=== PATIENT | female | born 1965 | race Caucasian/White ===

== ENCOUNTER 2019-07-07 14:30 | Outpatient (RCR) | payer OTHER, SELFPAY ==
--- NOTE | 2019-06-09 12:16 | HP.PTEVAL ---
Patient's Visit Information МАРИЯ ELDER is a 53 year old F referred to Physical Therapy by NELSNO OLIVARES with a diagnosis of Knee OA. Date of Evaluation: 06/09/19 Physical Therapist: Rosalba Hunter DPT - Visit Plan Frequency: 1x/Week Duration: 4 Weeks Plan: Focus on LE and core s/s- Give HEP each week due to work schedule- has no gym availability. HEP Given IE: SLR with quad set, Clams no band, Hamstring stretch seated, HR/TR, SLS with focus on keeping pelvis level - Subjective Findings: Pain in the left knee- started in January- insidious onset- was hiking in [place] and it bothered her. Got worse in March- had in injection which gave her superficial blood clots- had x-ray which showed bone on bone on the medial compartment. They are ordering Gel shots and a medial dope worker brace. Pain is located on the medial knee and radiates about 5 inches down the shaft of the tibia medially. No radiating pain. Describes the pain as first thing in the am she is better as the day goes on it gets worse- throbbing and achy- if she turns quickly then sharp/shooting. No N/T in the LE- no problems with the right leg. Sleep: not disturbed. Worst: 5-6/10. Agg: turning quickly. Best:0/10 Eases: getting off of it. Does feel like the knee will buckle under her. 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 PMHx: superficial blood clots, aortic aneurism. Meds: paxil, clopidorgil, atenolol, baby asprin. Does not have a normal exercise routine. She walks a lot- dog on the weekend she walks outside and does a couple of miles. - Objective Posture: FH, RS. Gait: antalgic- decreased heel/toe pattern on the left. Observation: significant rotation of the left LE. Stairs: asc/desc- significant rotation of the left LE- poor control with descent. HR/TR: able. SLS: hip drop 15 sec then LOB. ROM: 0-130 degrees. Palpatoin: pain along medial joint line. Flex: HS: moderate, Gastroc: moderate. Strength: Core:fair, Hip: 4/5, Knee: 4/5 with pain, Ankle: 5/5 - Goals Goal 1:: Patient will be I with HEP and progression Goal Time Frame: 4-6 Weeks Goal 2:: Patient will ambulate >300 feet with a normalized gait pattern Goal Time Frame: 4-6 Weeks Goal 3:: Patient will asc/desc 8 recip with 1 HR and good technique Goal Time Frame: 4-6 Weeks Goal 4:: Patient will demo 5/5 strength in LE Goal Time Frame: 4-6 Weeks - Rehabilitation Potential Physical Therapy Diagnosis: Patient presents with hypomobility- she has OA in the medial compartment of the knee. Demonstrating decreased strength, flex and muscular endurance leading to increased pain with ADL's. - Anticipated Interventions Patient/Client Instruction: Educate patient on: Benefits of Fitness Program Therapeutic Exercise to Include: Strength training, Endurance training, Balance training, Coordination, Agility training, Body mechanics, Postural training, Flexibilty training, Gait and locomotor training, Neuromotor development, Dynamic Lumbar Stabilization For the Purpose of:: To improve muscle performance and motor function TENS: Yes Cryotherapy (ice pack, ice massage): Yes Thermo therapy (hot pack): Yes Ultrasound (thermal/non thermal): Yes For the Purpose of:: To decrease pain Thank you for the opportunity to evaluate your patient. For Medicare and Medicare HMO plans, please review the plan of care and approve it. It will need to be FAXED BACK to us at [phone] for Medicare purposes. For Medicare only, by signing this I certify the plan of care. Please let me know if there are questions or concerns regarding this plan of care. Physician Signature: Date:
--- NOTE | 2019-07-07 14:54 | HP.PTDCSUM ---
It has been my pleasure to treat МАРИЯ ELDER referred by NELSON OLIVARES, with the diagnosis of Knee OA for a total of 5 visit(s). Discharge Date: Please see the following information for a summary of their discharge status. Subjective: Patient reports thats she had a cortisone and gel shot on Sunday- no significant changes since the injection. She reports that she feels stronger and has gotten the brace. She feels she is better. Feels confident with the exercises. Left Knee Pain Intensity (Out of 10): 0 % Improvement: 60 Objective/Function: Posture: FH, RS. Gait: antalgic- decreased heel/toe pattern on the left but improved from IE. Observation: significant rotation of the left LE. Stairs: asc/desc- significant rotation of the left LE. HR/TR: able. SLS: 30 sec no LOB ROM: 0-130 degrees. Palpatoin: pain along medial joint line. Flex: HS: moderate, Gastroc: moderate. Strength: Core:fair, Hip: 5/5, Knee: 5/5, Ankle: 5/5 Goal 1:: Patient will be I with HEP and progression Goal Progress: Goal Met Goal 2:: Patient will ambulate >300 feet with a normalized gait pattern Goal Progress: Progressing Goal 3:: Patient will asc/desc 8 recip with 1 HR and good technique Goal Progress: Progressing Goal 4:: Patient will demo 5/5 strength in LE Goal Progress: Goal Met Plan: Discharge to [facility] If there are questions or concerns regarding this patient's physical therapy, please feel free to call me at [phone]. Thank you for the referral of this patient. Sincerely, Rosalba Hunter DPT
== END 2019-07-07 19:00 | disposition home or self-care (01) ==
LOC: PT 14:30
PROVIDERS: PCP Internal Medicine
DX: M17.0 Bilateral primary osteoarthritis of knee (principal)
CPT/HCPCS: 97110; 97162; 97164

== ENCOUNTER 2019-12-15 11:30 | Outpatient (RCR) | payer OTHER, SELFPAY ==
--- NOTE | 2019-10-20 10:59 | HP.PTEVAL ---
Patient's Visit Information МАРИЯ ELDER is a 54 year old F referred to Physical Therapy by Dr. Red Howell DO with a diagnosis of L TKA. Date of Evaluation: 10/20/19 Physical Therapist: Toi Jarquin PT, ATC - Visit Plan Frequency: 2-3x /Week Duration: 4-6 Weeks Plan: L knee stretching and strengthening, balance and proprio, core strengthening, nustep, and HEP - Subjective DOS: 10/16/2019. Pt reports she had L knee pain chronically prior to having L TKA. Pt reports she attempted PT and injections in the past, but never benefitted much with them. Pt reports she is glad to have had the surgery at this time. Pt reports her pain is about the same as prior to surgery, but it continues to improve. No tingling or numbness at this time in the L LE. Pt reports sleep difficulty secondary to pain without the use of pain meds. No PMHx of knee surgeries. 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 Pt has stairs at home to her basement which she has not attempted yet. 3/10 pain at rest, 6/10 pain when meds are due. - Pain L Knee TKA Pain Intensity (Out of 10): 3 Pain Intensity Range: 6 - Objective Neuro: B LE sensation is WNL to light touch. B Achilles reflex= 2+/3. Girth at joint line: R knee 38 cm, L knee 44 cm. ROM: L knee 0-10-72. R knee 0-140 degrees. MMT: R knee 5/5 throughout. L knee 3+/5 in available ROM. Gait: Pt ambulated greater than 300 feet today with WW without difficulty. - Goals Goal 1:: Decrease L knee pain x 50% to aid with sleep Goal Time Frame: 4-6 Weeks Goal 2:: Increase L knee ROM x 40 degrees to aid with normalizing gait pattern Goal Time Frame: 4-6 Weeks Goal 3:: Increase L knee strength x 1 grade to aid with stair negotiation Goal Time Frame: 4-6 Weeks Goal 4:: I with HEP Goal Time Frame: 4-6 Weeks - Rehabilitation Potential Physical Therapy Diagnosis: L knee pain, weakness, and limited ROM secondary to L TKA Rehabilitation Potential: Good - Anticipated Interventions Patient/Client Instruction: Educate patient on: Condition, Plan of Care For the Purpose of:: To improve self management Therapeutic Exercise to Include: Strength training, Endurance training, Balance training, Flexibilty training, Gait and locomotor training, Passive ROM, Active ROM, Dynamic Lumbar Stabilization For the Purpose of:: To decrease pain, To increase ROM, To improve muscle performance and motor function Cryotherapy (ice pack, ice massage): Yes For the Purpose of:: To decrease pain Thank you for the opportunity to evaluate your patient. For Medicare and Medicare HMO plans, please review the plan of care and approve it. It will need to be FAXED BACK to us at [phone] for Medicare purposes. For Medicare only, by signing this I certify the plan of care. Please let me know if there are questions or concerns regarding this plan of care. Physician Signature: Date:
--- NOTE | 2019-12-25 16:48 | HP.PT.NRP ---
МАРИЯ ELDER was seen in my office for initial evaluation on 10/20/19. The following Plan of Care was established for this patient: Initial Frequency: 2-3x /Week Initial Duration: 4-6 Weeks Patient/Client Instruction: Educate patient on: Condition, Plan of Care For the Purpose of:: To improve self management Therapeutic Exercise to Include: Strength training, Endurance training, Balance training, Flexibilty training, Gait and locomotor training, Passive ROM, Active ROM, Dynamic Lumbar Stabilization For the Purpose of:: To decrease pain, To increase ROM, To improve muscle performance and motor function Cryotherapy (ice pack, ice massage): Yes For the Purpose of:: To decrease pain This patient was last seen in our office . Pertinent comments regarding their Physical therapy will appear below: Pt returned today with no pain after beginning work this week. Pt is discharged at this time with Rx goals being achieved. At this point I will be discontinuing this patient from physical therapy. I would be happy to see this patient again in the future if found appropriate by the physician. Thank you! Toi Jarquin, PT, ATC
== END 2019-12-15 19:00 | disposition home or self-care (01) ==
LOC: PT 11:30
PROVIDERS: PCP Internal Medicine; Referring Provider Internal Medicine; Visit Provider Internal Medicine
DX: M17.0 Bilateral primary osteoarthritis of knee (principal)
CPT/HCPCS: 97016; 97110; 97140; 97161; 97164

== ENCOUNTER → 2019-12-17 06:33 | Outpatient (CLI) | payer OTHER, SELFPAY ==
[2019-12-17 08:13] LABS: Cholesterol 173 mg/dL (200); High Density Lipoprotein 51 mg/dL; Triglycerides 91 mg/dL; Very Low Density Lipoprotein 18 mg/dL (5-40)
== END ==
PROVIDERS: PCP Internal Medicine
DX: Z13.220 Encounter for screening for lipoid disorders (principal)
CPT/HCPCS: 36415; 80061

== ENCOUNTER → 2021-12-29 | Outpatient (CLI) | payer BC, SELFPAY ==
--- NOTE | 2021-12-29 15:01 | BI_ITS ---
MAMMOGRAPHY - BILATERAL SCREENING REASON FOR EXAM: Female, 56 years old. Routine annual screening examination. PERTINENT HISTORY: Non-contributory. TECHNIQUE: Digital bilateral breast amrik (3D mammographic acquisition) in the CC and MLO projections. 2-D mediolateral oblique (MLO) and craniocaudad (CC) views of both breasts were obtained. CAD: Full Field Digital Mammography with Computer Added Detection was performed. COMPARISON: Comparison is made with prior abdomen examination dated 11/26/2018. FINDINGS: Breast Composition: The breasts are heterogeneously dense, which may obscure small masses. There are no dominant masses or suspicious calcifications. Stable benign-appearing left axillary lymph nodes. No other significant abnormalities are identified. There has been no significant change since the prior study. BI/SCRN MAMM (CAD)W/AMRIK BILAT IMPRESSION: Stable bilateral screening mammogram. Yearly follow-up mammogram recommended. (A) ASSESSMENT CATEGORY: BIRADS Category 2: Benign. A letter regarding these results will be sent to the patient by the facility within 30 days. Approximately 10% of breast cancers are not detected by mammography. A normal mammogram should not delay biopsy of a clinically suspicious abnormality. [id number] Electronically Signed: Rajesh Staples MD at 8:19 EDT ,
== END | disposition home or self-care (01) ==
PROVIDERS: PCP Internal Medicine
DX: Z12.31 Encounter for screening mammogram for malignant neoplasm of breast (principal)
CPT/HCPCS: 77063; 77067

== ENCOUNTER 2022-06-16 08:00 | Outpatient (RCR) | payer BC, SELFPAY ==
--- NOTE | 2022-04-28 13:58 | HP.PTEVAL_ITS ---
Patient's Visit Information МАРИЯ ELDER is a 56 year old F referred to Physical Therapy by Dr. Luis Felipe Henderson MD with a diagnosis of spondylolisthesis. Date of Evaluation: 04/28/22 Physical Therapist: Greg Jaime, DERIAN, OCS, CSCS - Visit Plan Frequency: 1x/Week Duration: 4-6 Weeks Plan: weekly x 4 to teach and progress LB ROM , and core to full body strength. Next session supermans and seted pulldown, row, pot stirs and check current exercises. Ensure NS. - Subjective LBP and B hip pain for months especially getting up in am. Putting feet on ground in morning was very painful. Lasted a couple hours. Better as day went along. That started in December and lasted until a month ago. 01/30 in am. Has x rays of hips which was fine. Gave a round of steroids and helped but came back within a week. Sent to ortho spine doctor [facility] 04/11 adn pain was gone by then. 100% better now and not sure why. X ray of spine and has spondylolisthesis. May need a fusion eventually. Not sure when pain will come back. Sent for core exercises. Will start taking calcium. Life is normal right now, sleeps well. Flipped mattress and felt better as it is more firm now. 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 Hobbies: sew, [employer].No problem. basic ADLs are OK. - Objective Walks normal today with good balance. Trasnfers normal without pain. LB AROM full and painfree except extension minlimited and tight centrally. quad and psoas mod tight B, other muscle good and patent. strength LE 4/5 except hip extension with 3/5 B. core strength 3+ abdominals and extensors. PA pressur epainful lower lumbar. - slump, -SLR. reflexes 2/3 patella and achilles. sensation LE WNL to gross light touch. - Balance/Special Test Scores Oswestry Low Back Score: 2 - Goals Goal 1:: I management of condition of strength and ROM and stretching ex without retun of pain Goal Time Frame: 2-4 Weeks - Rehabilitation Potential Physical Therapy Diagnosis: h/o LBP spondylolisthesis Rehabilitation Potential: Good - Anticipated Interventions Patient/Client Instruction: Educate patient on: Condition, Plan of Care For the Purpose of:: To decrease pain, To improve nutrient delivery to tissue, To increase tolerance to activity/condition/position, To improve ability of physical actions for home/community/work/leisure Therapeutic Exercise to Include: Strength training, Flexibilty training, Passive ROM, Active ROM, Dynamic Lumbar Stabilization For the Purpose of:: To decrease pain, To improve muscle performance and motor function, To improve ability of physical actions for home/community/work/leisure Thank you for the opportunity to evaluate your patient. For Medicare and Medicare HMO plans, please review the plan of care and approve it. It will need to be FAXED BACK to us at [phone] for Medicare purposes. For Medicare only, by signing this I certify the plan of care. Please let me know if there are questions or concerns regarding this plan of care. Physician Signature: Date:
--- NOTE | 2022-06-16 08:26 | HP.PTDCSUM_ITS ---
It has been my pleasure to treat МАРИЯ ELDER referred by Dr. Luis Felipe Henderson MD, with the diagnosis of spondylolisthesis for a total of 4 visit(s). Discharge Date: 06/16/22 Please see the following information for a summary of their discharge status. Subjective: Take a daily alleve for R knee. Feeling good for the last month. Occasional pain now and then in LB. May have to do with putting bed heads up/down. Exercises are getting easier. Even knee is getting better. Pain only gets to 2/10 and activities are normal. Sleeping well. No f/u with doctor [facility] returns. Fusion was mentioned. Objective/Function: Full aROM L/S with just slight end range ext pain. Moving adn walking well. Goal 1:: I management of condition of strength and ROM and stretching ex without retun of pain Goal Progress: Goal Met Plan: d/c If there are questions or concerns regarding this patient's physical therapy, please feel free to call me at [phone]. Thank you for the referral of this patient. Sincerely, Greg Jaime, DPT, OCS, CSCS Balance/Gait/Functional tests - Balance/Special Test Scores Oswestry Low Back Score: 2
== END 2022-06-16 08:33 | disposition home or self-care (01) ==
LOC: PT 08:00
PROVIDERS: PCP Internal Medicine; Referring Provider Orthopaedic Surgery Orthopaedic Surgery of the Spine; Visit Provider Orthopaedic Surgery Orthopaedic Surgery of the Spine
DX: M43.16 Spondylolisthesis, lumbar region (principal)
CPT/HCPCS: 97110; 97161; 97164

== ENCOUNTER → 2022-09-23 | Outpatient (CLI) | payer BC, SELFPAY ==
[2022-09-23 09:15] LABS: ALB/GLOB Ratio 1.2 RATIO (0.9-2.4); AST(SGOT) 22 U/L (15-37); Alanine Aminotransfer ALT/SGPT 18 U/L (13-56); Albumin, Serum 3.3 g/dL (3.2-5.0); Alkaline Phosphatase 54 U/L (45-117); Anion Gap 6 (5-15); BUN 29 mg/dL (7-18); BUN/Creat Ratio 35.5 RATIO (10-20); Calcium,Total 8.1 mg/dL (8.5-10.1); Chloride 111 mmol/L (98-107); Cholesterol 145 mg/dL (200); Creatinine, Serum 0.82 mg/dL (0.55-1.02); EST Glomerular Filtration Rate 76 mL/min (>60); Est Glom Filt Rate - Afr Amer 92 mL/min (>60); Globulin 2.7 g/dL (2.2-4.2); Glucose 80 mg/dL (74-106); High Density Lipoprotein 52 mg/dL; Potassium 4.5 mmol/L (3.5-5.1); Sodium Level 144 mmol/L (136-145); Triglycerides 60 mg/dL; Very Low Density Lipoprotein 12 mg/dL (5-40)
== END | disposition home or self-care (01) ==
LOC: LAB 06:59
PROVIDERS: PCP Internal Medicine; Referring Provider Internal Medicine; Visit Provider Internal Medicine
DX: E78.5 Hyperlipidemia, unspecified (principal); Z79.899 Other long term (current) drug therapy
CPT/HCPCS: 36415; 80053; 80061

== ENCOUNTER → 2023-03-07 | Outpatient (CLI) | payer BC, SELFPAY ==
--- NOTE | 2023-03-07 15:04 | BI_ITS ---
MAMMOGRAPHY - BILATERAL SCREENING REASON FOR EXAM: Female, 57 years old. Routine annual screening examination. PERTINENT HISTORY: Non-contributory. TECHNIQUE: Digital bilateral breast amrik (3D mammographic acquisition) in the CC and MLO projections. 2-D mediolateral oblique (MLO) and craniocaudad (CC) views of both breasts were obtained. CAD: Full Field Digital Mammography with Computer Added Detection was performed. COMPARISON: Comparison is made with prior study dated December 29, 2021. FINDINGS: Breast Composition: The breasts are heterogeneously dense, which may obscure small masses. There are no dominant masses or suspicious calcifications. No other significant abnormalities are identified. There has been no significant change since the prior study. BI/SCRN MAMM (CAD)W/AMRIK BILAT IMPRESSION: Stable bilateral screening mammogram. Yearly follow-up mammogram recommended. (A) ASSESSMENT CATEGORY: BIRADS Category 1: Negative. A letter regarding these results will be sent to the patient by the facility within 30 days. Approximately 10% of breast cancers are not detected by mammography. A normal mammogram should not delay biopsy of a clinically suspicious abnormality. [id number] Electronically Signed: Rajesh Staples MD at 8:41 EST ,
== END | disposition home or self-care (01) ==
PROVIDERS: PCP Internal Medicine
DX: Z12.31 Encounter for screening mammogram for malignant neoplasm of breast (principal)
CPT/HCPCS: 77063; 77067

== ENCOUNTER → 2023-09-14 | Outpatient (CLI) | payer OTHER, SELFPAY ==
[2023-09-14 08:44] LABS: Basophil# 0.04 X10^3/uL; Basophil% 0.8 % (0-1); Eosinophil# 0.14 X10^3/uL; Eosinophils% 2.8 % (0-5); Hematocrit 44.4 % (37-47); Hemoglobin 14.5 g/dL (12.0-15.0); Lymphocyte % 28.5 % (19-41); Mean Corp Hgb Conc 32.7 g/dL (32-36); Mean Corpuscular Hgb 30.1 pg (27.0-32.0); Mean Corpuscular Volume 92.3 fL (81-99); Mean Platelet Vol. 9.8 fl (6.2-12.0); Monocyte# 0.37 X10^3/uL; Monocyte% 7.5 % (0-10); NRBC Flagged by Analyzer 0 % (0-5); Neutrophil # 2.95 X10^3/uL (2.7-7.7); Platelet Count 198 K/mm3 (150-450); RBC Distribution Width SD 44.4 fl (35.1-43.9); Red Blood Count 4.81 M/mm3 (4.2-5.4); White Blood Count 4.9 K/mm3 (4.4-11.0)
[2023-09-14 09:27] LABS: ALB/GLOB Ratio 1.1 RATIO (0.9-2.4); AST(SGOT) 18 U/L (15-37); Alanine Aminotransfer ALT/SGPT 18 U/L (13-56); Albumin, Serum 3.5 g/dL (3.2-5.0); Alkaline Phosphatase 48 U/L (45-117); Anion Gap 6 (5-15); BUN 28 mg/dL (7-18); BUN/Creat Ratio 30.4 RATIO (10-20); Calcium,Total 8.8 mg/dL (8.5-10.1); Chloride 112 mmol/L (98-107); Cholesterol 178 mg/dL (200); Creatinine, Serum 0.92 mg/dL (0.55-1.02); EST Glomerular Filtration Rate 66 mL/min (>60); Est Glom Filt Rate - Afr Amer 80 mL/min (>60); Globulin 3.2 g/dL (2.2-4.2); Glucose 92 mg/dL (74-106); High Density Lipoprotein 54 mg/dL; Potassium 4.3 mmol/L (3.5-5.1); Protein, Total 6.7 g/dL (6.4-8.2); Sodium Level 142 mmol/L (136-145); Thyroid Stim Hormone (TSH) 2.64 uIU/mL (0.358-3.74); Triglycerides 81 mg/dL; Very Low Density Lipoprotein 16 mg/dL (5-40)
== END | disposition home or self-care (01) ==
LOC: LAB 08:14
PROVIDERS: PCP Internal Medicine; Visit Provider Internal Medicine
DX: Z00.00 Encounter for general adult medical examination without abnormal findings (principal); E78.5 Hyperlipidemia, unspecified
CPT/HCPCS: 36415; 80053; 80061; 84443; 85025

== ENCOUNTER → 2024-03-10 | Outpatient (CLI) | payer OTHER, SELFPAY ==
--- NOTE | 2024-03-10 15:55 | BI_ITS ---
MAMMOGRAPHY - BILATERAL SCREENING REASON FOR EXAM: Female, 58 years old. Routine annual screening examination. PERTINENT HISTORY: Non-contributory. TECHNIQUE: Digital bilateral breast amrik (3D mammographic acquisition) in the CC and MLO projections. 2-D mediolateral oblique (MLO) and craniocaudad (CC) views of both breasts were obtained. CAD: Full Field Digital Mammography with Computer Added Detection was performed. COMPARISON: Comparison is made with prior study dated March 07, 2023 and December 29, 2021. FINDINGS: Breast Composition: The breasts are heterogeneously dense, which may obscure small masses. There are no dominant masses or suspicious calcifications. No other significant abnormalities are identified. There has been no significant change since the prior study. BI/SCRN MAMM (CAD)W/AMRIK BILAT IMPRESSION: Stable bilateral screening mammogram. Yearly follow-up mammogram recommended. (A) ASSESSMENT CATEGORY: BIRADS Category 1: Negative. A letter regarding these results will be sent to the patient by the facility within 30 days. Approximately 10% of breast cancers are not detected by mammography. A normal mammogram should not delay biopsy of a clinically suspicious abnormality. [id number] Electronically Signed: Rajesh Staples MD at 9:24 EST ,
== END | disposition home or self-care (01) ==
LOC: OPBI 15:52
DX: Z12.31 Encounter for screening mammogram for malignant neoplasm of breast (principal)
CPT/HCPCS: 77063; 77067

== ENCOUNTER 2024-04-04 05:57 | Day surgery (SDC) | payer OTHER, SELFPAY ==
--- NOTE | 2024-04-03 07:28 | PAT.ANE_ITS ---
PAT status Pat Assessment PAT Assessment: PAT Anesthesia Results to Eval 04/02/24 16:33 Pre-Assessment Diagnosis/Proposed Procedure Planned Operative Procedure(s): COLONOSCOPY Anesthesia History Anesthesia History - heater helper: Anesthesia History - heater helper Hx Hospitalization No 04/01/24 14:44 Any Problems With Anesthesia No 04/01/24 14:44 Cholinesterase deficiency No 04/01/24 14:44 You/Your Family Experience No 04/01/24 14:44 fever (hyperthermia) with Relationship Recent Exposure to Contagious Disease Does patient have nerve No 04/01/24 14:44 stimulator Patient instructed to have device shut off --Does patient have Pacemaker or ICD? When Was Last Pacemaker Check QUESTION #4 FULL TEXT: You/Your Family Experience fever (hyperthermia) with Anesthesia Last Oral Intake Last Oral intake: Last Oral Intake NPO since Meds taken in AM with sips of water? Meds patient instructed to take am of surgery PONV PONV - heater helper: PONV - heater helper Female Yes 04/01/24 14:44 HX of Motion Sickness No 04/01/24 14:44 HX of N/V After Surgery No 04/01/24 14:44 Non-Smoker Yes 04/01/24 14:44 Duration of Surgery greater No 04/01/24 14:44 than 60 minutes Number of Risk Factors 2 04/01/24 14:44 PONV Score Moderate Risk 04/01/24 14:44 Respiratory Assessment Respiratory Assessment - heater helper: Respiratory Tract Infection Hx - heater helper Hx Respiratory Tract Infection No 04/01/24 14:44 STOP Sleep Apnea STOP Sleep Apnea - heater helper: STOP Sleep Apnea - heater helper Hx Hypertension No 04/01/24 14:44 Hx Sleep Apnea No 04/01/24 14:44 CPAP BIPAP Do you snore loudly (louder No 04/01/24 14:44 than talking or can be heard Do you often feel tired/ No 04/01/24 14:44 fatigued/ sleepy during daytime? Has anyone observed you stop No 04/01/24 14:44 breathing during sleep? STOP Results Negative 04/01/24 14:44 QUESTION #5 FULL TEXT : Do you snore loudly (louder than talking or can be heard through closed doors)? 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 Specify any problems Hx of Preganancy in last 3 No 04/01/24 14:44 Months Nurse Filling Out Transfusion [facility] 04/01/24 14:44 & Questions: Date: 04/01/24 04/01/24 14:44 Time: 14:55 04/01/24 14:44 Patient unable to answer at this time (ie. confused, unrespo /Reproduction History /Reproductive History - heater helper: /Reproductive Hx- heater helper Hx Now No 04/01/24 14:44 Gestational Age (in weeks): EDC: Hx Hx Para Hx Section SAB PFSH Medical History (Updated 04/01/24 @ 14:54 by Kathy Phillips) Wears glasses Depression Alcohol use Acute superficial venous thrombosis of left lower extremity Non-smoker History of echocardiogram History of stress test Cardiology follow-up encounter MVP (mitral valve prolapse) History of irregular heartbeat AAA (abdominal aortic aneurysm) Home Medications ?Medication ?Instructions ?Recorded ?Last Taken ?Type aspirin 81 mg tablet,delayed 81 mg PO QDAY 02/08/24 Unknown History release atenolol 50 mg tablet 50 mg PO QDAY 02/08/24 Unknown History cholecalciferol (vitamin D3) 25 25 mcg PO QDAY 02/08/24 Unknown History mcg (1,000 unit) capsule flaxseed oil 1,000 mg capsule 1,000 mg PO QDAY 02/08/24 Unknown History paroxetine HCl 20 mg tablet (Paxil) 15 mg PO QDAY 02/08/24 Unknown History amoxicillin 500 mg tablet 2,000 mg PO X1 04/01/24 Unknown History magnesium 200 mg tablet 400 mg PO DAILY 04/01/24 Unknown History psyllium husk 0.52 gram capsule 1.04 g PO DAILY 04/01/24 Unknown History (Fiber-Caps (psyllium husk)) vitamin B complex 1 tab PO DAILY 04/01/24 Unknown History Allergy/AdvReac Type Severity Reaction Status Date / Time meperidine (From Demerol) Allergy Intermediate Other Verified 02/08/24 09:17 Surgical History (Updated 04/01/24 @ 14:54 by Kathy Phillips) History of colonoscopy History of tubal ligation History of History of tonsillectomy History of knee replacement procedure of left knee Social History Smoking Status: Never smoker Audit: Pertinent Findings Pertinent Findings Echo (EF%) pertinent findings: 2023 EF 60-65% no changes Consult pertinent findings: cardio check up 04/01/24 CAD hx no [id number] Stable Recommendation Anesthesia Recommendation Anesthesia recommendation: OPTIMIZED for anesthesia
[2024-04-04] VITALS (8 sets, daily range): BP systolic 84–98; BP diastolic 59–75; PULSE 66–76; RESP 16–18; TEMP 36.1–36.6; O2SAT 96–99; BMI 25.9
--- NOTE | 2024-04-04 06:43 | PCM.PRE.AN2 ---
ASA Classification* ASA Classification ASA Classification: 2 Assessment & Plan Anesthesia* Anesthesia Assessment Anesthesia Assessment: Discussed sedation and/or anesthesia options, risks, benefits, and alternatives with patient/parents/legal guardian/POA. Questions invited. The patient/parents/legal guardian/POA seems to understand and agrees to proceed with anesthesia plan. Reviewed the physical assessment, medical history, allergy history and patient home medications list prior to surgery/procedure/anesthetic and documented any changes. Performed airway and anesthesia risk assessments. Anesthesia Type Anesthesia Type: MAC Anesthesia Focused Assessment* Temperature: 97.5 F Pulse Rate: 66 Blood Pressure: 91/68 Respiratory Rate: 18 Pulse Ox: 99 Airway Assessment Mouth opens: >3 cm Mallampati Score: II Focused Labs Anesthesia Preop lab: CBC WBC 4.9 K/mm3 (4.4-11.0) 09/14/23 08:18 RBC 4.81 M/mm3 (4.2-5.4) 09/14/23 08:18 Hgb 14.5 g/dL (12.0-15.0) 09/14/23 08:18 Hct 44.4 % (37-47) 09/14/23 08:18 Plt Count 198 K/mm3 (150-450) 09/14/23 08:18 CHEMISTRY Potassium 4.3 mmol/L (3.5-5.1) 09/14/23 08:18 Sodium 142 mmol/L (136-145) 09/14/23 08:18 BUN 28 mg/dL (7-18) H 09/14/23 08:18 Creatinine 0.92 mg/dL (0.55-1.02) 09/14/23 08:18 Glucose 92 mg/dL (74-106) 09/14/23 08:18 TSH 2.64 uIU/mL (0.358-3.74) 09/14/23 08:18 COAG Pre-Assessment Diagnosis/Proposed Procedure Planned Operative Procedure(s): COLONOSCOPY Anesthesia History 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 When Was Last Pacemaker Check QUESTION #4 FULL TEXT: You/Your Family Experience fever (hyperthermia) with Anesthesia Last Oral Intake Last Oral intake: Last Oral Intake NPO since 03:00 04/04/24 06:11 Meds taken in AM with sips of water? Meds patient instructed to take am of surgery PONV PONV - crime scene evidence technician: PONV - crime scene evidence technician Female Yes 04/01/24 14:44 HX of Motion Sickness No 04/01/24 14:44 HX of N/V After Surgery No 04/01/24 14:44 Non-Smoker Yes 04/01/24 14:44 Duration of Surgery greater No 04/01/24 14:44 than 60 minutes Number of Risk Factors 2 04/01/24 14:44 PONV Score Moderate Risk 04/01/24 14:44 Height & Weight Height & Weight: Anesthesia: Height & Weight Height 5 ft 6 in 04/04/24 06:11 Weight: 73 kg 04/04/24 06:11 Body Mass Index (BMI) 25.9 04/04/24 06:11 Respiratory Assessment Respiratory Assessment - crime scene evidence technician: Respiratory Tract Infection Hx - crime scene evidence technician Hx Respiratory Tract Infection No 04/01/24 14:44 STOP Sleep Apnea STOP Sleep Apnea - crime scene evidence technician: STOP Sleep Apnea - crime scene evidence technician Hx Hypertension No 04/01/24 14:44 Hx Sleep Apnea No 04/01/24 14:44 CPAP BIPAP Do you snore loudly (louder No 04/01/24 14:44 than talking or can be heard Do you often feel tired/ No 04/01/24 14:44 fatigued/ sleepy during daytime? Has anyone observed you stop No 04/01/24 14:44 breathing during sleep? STOP Results Negative 04/01/24 14:44 QUESTION #5 FULL TEXT : Do you snore loudly (louder than talking or can be heard through closed doors)? 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 Specify any problems Hx of Preganancy in last 3 No 04/01/24 14:44 Months Nurse Filling Out Transfusion [facility] 04/01/24 14:44 & Questions: Date: 04/01/24 04/01/24 14:44 Time: 14:55 04/01/24 14:44 Patient unable to answer at this time (ie. confused, unrespo /Reproduction History /Reproductive History - crime scene evidence technician: /Reproductive Hx- crime scene evidence technician Hx Now No 04/01/24 14:44 Gestational Age (in weeks): EDC: Hx Hx Para Hx Section SAB PFSH Medical History Wears glasses Depression Alcohol use Acute superficial venous thrombosis of left lower extremity Non-smoker History of echocardiogram History of stress test Cardiology follow-up encounter MVP (mitral valve prolapse) History of irregular heartbeat AAA (abdominal aortic aneurysm) Home Medications ?Medication ?Instructions ?Recorded ?Last Taken ?Type aspirin 81 mg tablet,delayed 81 mg PO QDAY 02/08/24 03/31/24 History release atenolol 50 mg tablet 50 mg PO QDAY 02/08/24 04/03/24 History cholecalciferol (vitamin D3) 25 25 mcg PO QDAY 02/08/24 Unknown History mcg (1,000 unit) capsule flaxseed oil 1,000 mg capsule 1,000 mg PO QDAY 02/08/24 Unknown History paroxetine HCl 20 mg tablet (Paxil) 15 mg PO QDAY 02/08/24 Unknown History amoxicillin 500 mg tablet 2,000 mg PO X1 04/01/24 04/04/24 History magnesium 200 mg tablet 400 mg PO DAILY 04/01/24 Unknown History psyllium husk 0.52 gram capsule 1.04 g PO DAILY 04/01/24 Unknown History (Fiber-Caps (psyllium husk)) vitamin B complex 1 tab PO DAILY 04/01/24 Unknown History Allergy/AdvReac Type Severity Reaction Status Date / Time meperidine (From Demerol) Allergy Intermediate Other Verified 04/04/24 06:10 Surgical History History of colonoscopy History of tubal ligation History of History of tonsillectomy History of knee replacement procedure of left knee Social History Smoking Status: Never smoker Review of Systems (Anesthesia) ROS Narrative System reviewed and no additional complaints, except as documented.
--- NOTE | 2024-04-04 06:44 | PCM.HP.STD ---
HPI - General General Date of Admission: 04/04/24 Date of Service: 04/04/24 Chief Complaint: Screening colonoscopy HPI Narrative МАРИЯ ELDER, is a 58 F who presentsМАРИЯ ELDER, is a 58 F who presents to the office today for initial consult. Patient referred for constipation and need for screening colonoscopy. States group home issues with Constipation. Has a BM at least once a week. Denied blood or dark stools. Not having any abdominal pain , cramping, bloating, heartburn. [facility] Medical History Wears glasses Depression Alcohol use Acute superficial venous thrombosis of left lower extremity Non-smoker History of echocardiogram History of stress test Cardiology follow-up encounter MVP (mitral valve prolapse) History of irregular heartbeat AAA (abdominal aortic aneurysm) Home Medications ?Medication ?Instructions ?Recorded ?Last Taken ?Type aspirin 81 mg tablet,delayed 81 mg PO QDAY 02/08/24 03/31/24 History release atenolol 50 mg tablet 50 mg PO QDAY 02/08/24 04/03/24 History cholecalciferol (vitamin D3) 25 25 mcg PO QDAY 02/08/24 Unknown History mcg (1,000 unit) capsule flaxseed oil 1,000 mg capsule 1,000 mg PO QDAY 02/08/24 Unknown History paroxetine HCl 20 mg tablet (Paxil) 15 mg PO QDAY 02/08/24 Unknown History amoxicillin 500 mg tablet 2,000 mg PO X1 04/01/24 04/04/24 History magnesium 200 mg tablet 400 mg PO DAILY 04/01/24 Unknown History psyllium husk 0.52 gram capsule 1.04 g PO DAILY 04/01/24 Unknown History (Fiber-Caps (psyllium husk)) vitamin B complex 1 tab PO DAILY 04/01/24 Unknown History Allergy/AdvReac Type Severity Reaction Status Date / Time meperidine (From Demerol) Allergy Intermediate Other Verified 04/04/24 06:10 Surgical History History of colonoscopy History of tubal ligation History of History of tonsillectomy History of knee replacement procedure of left knee Social History Smoking Status: Never smoker Vital Signs Vital Signs Vital Signs: 04/04/24 06:11 04/04/24 06:11 04/04/24 06:44 Temperature 97.5 F L 97.5 F L Temperature Source Temporal Pulse Rate 66 66 Respiratory Rate 18 18 Respiratory Pattern Normal Blood Pressure 91/68 91/68 Blood Pressure Mean 75 Blood Pressure Source Monitor Blood Pressure Position Semi-Fowlers Blood Pressure Location Right Arm Pulse Ox 99 99 Oxygen Delivery Method Room Air Weight Weight: 160 lb 14.999 oz Body Mass Index (BMI) 25.9 Physical Exam Const alert, oriented x3, no apparent distress and healthy appearing General Appearance: cooperative GI normal to inspection, nondistended, normoactive bowel sounds, soft to palpation, non-tender and non-distended Percussion: normal to percussion Rectal Exam: deferred Assessment & Plan Assessment/Plan (1) Screening for colon cancer: PLAN: Very pleasant 58-year-old with chronic antibiotic constipation who needs to undergo colonoscopy. She will undergo screening colonoscopy. She was explained alternatives, risk, benefits include not withstanding bleeding, infection, sepsis, perforation, need of emergent urgent . She will have an ASA of 3.
--- NOTE | 2024-04-04 07:00 | COLBX_PTH ---
PATIENT: МАРИЯ ELDER LOC: EN U#:[id number] AGE/SX: 58/F ROOM: RE04/04/[address]: Dr. Dax Ricks DO : 1965 BED: DIS: 04/04/2024 SPEC #: [id number] RECD: 04/04/24 10:43 STATUS: TERA REDaily #: [id number] RUTH: 04/04/24 07:[address]: Dax Ricks DEPT: SURGICAL PATHOLOGY RECD BY: Lucy Grace Tissues: Cecum, NOS Procedures: Surgery Specimen Level IV HEADER OPERATION: Colonoscopy with polypectomy PRE-OP DIAGNOSIS: Screening for colon cancer TISSUE SUBMITTED: Cecum polyp MICROSCOPIC DIAGNOSIS Cecal polyp, polypectomy: Fragments of hyperplastic polyp. SJ.mr 04/07/2024 MICROSCOPIC DESCRIPTION Slides are reviewed. GROSS DESCRIPTION Received in fixative is one container labeled with the patient's name and designated Cecum polyp. The specimen consists of multiple raggedy-looking fragments of torres soft tissue that in aggregate to at most 3.0 mm. The specimen is totally submitted in one cassette. 04/04/2024 TC:1 CPT:45248
--- NOTE | 2024-04-04 07:36 | OP.COLON_ITS ---
Patient Name: Arlen Cruz Procedure Date: 04/04/2024 7:06 AM Date of : 1965 Age: 58 Procedure: Colonoscopy Indications: Screening for colorectal malignant neoplasm Providers: Dax Ricks DO Referring MD: Lady Urbina Medicines: Monitored Anesthesia Care Patient Profile: This is a 58 year old female. Refer to note in patient chart for documentation of history and physical. Last Colonoscopy: more than 10 years ago. Complications: No immediate complications. Procedure: Pre-Anesthesia Assessment: - Prior to the procedure, a History and Physical was performed, and patient medications and allergies were reviewed. The patient is competent. The risks and benefits of the procedure and the sedation options and risks were discussed with the patient. All questions were answered and informed consent was obtained. Patient identification and proposed procedure were verified by the physician in the pre-procedure area. Mental Status Examination: alert and oriented. Airway Examination: normal oropharyngeal airway and neck mobility. Respiratory Examination: clear to auscultation. CV Examination: normal. Prophylactic Antibiotics: The patient does not require prophylactic antibiotics. Prior Anticoagulants: The patient has taken no anticoagulant or antiplatelet agents except for NSAID medication. ASA Grade Assessment: II - A patient with mild systemic disease. After reviewing the risks and benefits, the patient was deemed in satisfactory condition to undergo the procedure. The anesthesia plan was to use monitored anesthesia care (MAC). Immediately prior to administration of medications, the patient was re-assessed for adequacy to receive sedatives. The heart rate, respiratory rate, oxygen saturations, blood pressure, adequacy of pulmonary ventilation, and response to care were monitored throughout the procedure. The physical status of the patient was re-assessed after the procedure. After I obtained informed consent, the scope was passed under direct vision. Throughout the procedure, the patient's blood pressure, pulse, and oxygen saturations were monitored continuously. The Colonoscope was introduced through the anus and advanced to the cecum, identified by appendiceal orifice and ileocecal valve. The colonoscopy was performed without difficulty. The patient tolerated the procedure well. The quality of the bowel preparation was adequate. The ileocecal valve, appendiceal orifice, and rectum were photographed. Scope In: 7:14:26 AM Scope Withdrawal Time 0 hours 9 minutes 53 seconds Scope Out: 7:32:25 AM Total Procedure Duration Time 0 hours 17 minutes 59 seconds Findings: The perianal and digital rectal examinations were normal. A 7 mm polyp was found in the cecum. The polyp was sessile. The polyp was removed with a hot snare. Resection and retrieval were complete. Verification of patient identification for the specimen was done. Estimated blood loss was minimal. The exam was otherwise without abnormality on direct and retroflexion views. Impression: - One 7 mm polyp in the cecum, removed with a hot snare. Resected and retrieved. - The examination was otherwise normal on direct and retroflexion views. Recommendation: - Discharge patient to home. - Resume previous diet. - Continue present medications. - Await pathology results. - Repeat colonoscopy in 5 years for surveillance. Procedure Code(s): --- Professional --- 33922, Colonoscopy, flexible; with removal of tumor(s), polyp(s), or other lesion(s) by snare technique CPT copyright 2021 [employer]. All rights reserved. The codes documented in this report are preliminary and upon cpc coder review may be revised to meet current compliance requirements. Dax Ricks DO 04/04/2024 7:36:00 AM This report has been signed electronically. Number of Addenda: 0 Note Initiated On: 04/04/2024 7:06 AM
--- NOTE | 2024-04-04 07:36 | OP.CCLET_ITS ---
04/04/2024 Ciara Re : Colonoscopy procedure for Arlen Cruz Dear Ciara This procedure was performed on Thursday, April 04, 2024. My impressions and recommendations are as follows: Impressions : - One 7 mm polyp in the cecum, removed with a hot snare. Resected and retrieved. - The examination was otherwise normal on direct and retroflexion views. Recommendations : - Discharge patient to home. - Resume previous diet. - Continue present medications. - Await pathology results. - Repeat colonoscopy in 5 years for surveillance. My findings are described in the full procedure note, which is enclosed. If I can be of further assistance, please feel free to contact me at . Sincerely, Dax Ricks, 04/04/2024 7:36:00 AM This report has been signed electronically.
--- NOTE | 2024-04-04 07:43 | PCM.POST.ANE ---
Anesthesia: Postop Eval I Current Vital Signs Temperature: 97 F Pulse Rate: 71 Blood Pressure: 84/67 Respiratory Rate: 16 Pulse Ox: 99 Oxygen Delivery Method: Room Air Assessment Airway patent: Yes Spontaneous unlabored respirations: Yes Mental status: Awake and Calm nausea: No Vomiting: No Anesthesia Complication: No Fluid Hydration Crystalloid volume administer (ml): 40 Total IV fluid infused: 40 Progress Note Anesthesia document: Postop Eval 1 completed: Yes
--- NOTE | 2024-04-04 08:48 | PCM.POSTANE2 ---
Anesthesia Postop Eval I Sum Postop Eval Completion status Anesthesia document: Postop Eval 1 completed: Yes Anesthesia Postop Eval I Summary Anesthesia Postop Eval I Summary: Anesthesia Postop Eval I: Assessment Summary Airway patent Yes 04/04/24 07:44 [email or web address] Spontaneous unlabored Yes 04/04/24 07:44 [email or web address] respirations Mental status Awake,Calm 04/04/24 07:44 [email or web address] nausea No 04/04/24 07:44 [email or web address] Vomiting No 04/04/24 07:44 [email or web address] Anesthesia Postop Eval I: Fluid Summary Crystalloid volume administer 40 04/04/24 07:44 [email or web address] (ml) Colloids volume administered ( ml) Blood Product volume administered (ml) Total IV fluid infused 40 04/04/24 07:44 [email or web address] Anesthesia Postop Eval I: Summary Notes Anesthesia Complication No 04/04/24 07:44 [email or web address] Anesthesia Complication Comment: Post-operative progress note Anesthesia: Postop Eval II Evaluation Mental status: Awake Pain Level: 0 nausea: No Vomiting: No
== END 2024-04-04 08:17 | disposition home or self-care (01) ==
LOC: EN 06:00 → AC 06:01
PROVIDERS: Visit Provider Internal Medicine Gastroenterology
PROC: 0DJD8ZZ Inspection of Lower Intestinal Tract, Via Natural or Artificial Opening Endoscopic (ICD-10-PCS; CPT 45378; principal; 2024-04-04 06:55)
DX: Z12.11 Encounter for screening for malignant neoplasm of colon (principal); K63.5 Polyp of colon; Z79.82 Long term (current) use of aspirin
CPT/HCPCS: 45385; 88305; A4216; J2405

== ENCOUNTER → 2024-09-18 | Outpatient (CLI) | payer OTHER, SELFPAY ==
[2024-09-18 10:40] LABS: Absolute Lymphocyte Count 1.82 X10^3/uL (0.83-4.51); Absolute Neutrophil Count 4.3 X10^3/uL (2.0-7.7); Basophil# 0.04 X10^3/uL; Basophil% 0.6 % (0-1); Eosinophil# 0.21 X10^3/uL; Hematocrit 44.3 % (37-47); Hemoglobin 14.9 g/dL (12.0-15.0); Lymphocyte # 1.82 X10^3/ul (0.83-4.51); Lymphocyte % 26.3 % (19-41); Mean Corp Hgb Conc 33.6 g/dL (32-36); Mean Corpuscular Hgb 31.6 pg (27.0-32.0); Mean Corpuscular Volume 93.9 fL (81-99); Mean Platelet Vol. 10.2 fl (6.2-12.0); Monocyte# 0.55 X10^3/uL; Monocyte% 7.9 % (0-10); NRBC Flagged by Analyzer 0 % (0-5); Neutrophil # 4.28 X10^3/uL (2.7-7.7); Neutrophil % 61.8 % (47-70); Platelet Count 202 K/mm3 (150-450); RBC Distribution Width CV 13.1 % (11.6-14.6); RBC Distribution Width SD 45.6 fl (35.1-43.9); Red Blood Count 4.72 M/mm3 (4.2-5.4); White Blood Count 6.9 K/mm3 (4.4-11.0)
[2024-09-18 11:32] LABS: ALB/GLOB Ratio 1.8 RATIO (0.9-2.4); AST(SGOT) 24 U/L (<=31); Alanine Aminotransfer ALT/SGPT 16 U/L (<=34); Albumin, Serum 4.3 g/dL (3.4-4.8); Alkaline Phosphatase 50 U/L (35-104); Anion Gap 10 (5-15); BUN 23 mg/dL (4-19); BUN/Creat Ratio 26.7 RATIO (10-20); Calcium,Total 9.2 mg/dL (7.6-11.0); Carbon Dioxide 25.8 mmol/L (21.0-32.0); Chloride 108 mmol/L (98-108); Cholesterol 173 mg/dL (<=200); Creatinine, Serum 0.85 mg/dL (0.70-1.20); EST Glomerular Filtration Rate 77 (>60); Globulin 2.4 g/dL (2.2-4.2); Glucose 76 mg/dL (70-99); High Density Lipoprotein 56 mg/dL; Low Density Lipoprotein Calc. 104 mg/dL; Protein, Total 6.7 g/dL (5.9-8.4); Sodium Level 144 mmol/L (133-145); Total Bilirubin 0.45 mg/dL (0.00-1.30); Triglycerides 65 mg/dL; Very Low Density Lipoprotein 13 mg/dL (5-40); Vitamin D,25 Hydroxy 93.2 ng/mL (30-100); cholesterol:hdl ratio screen 3.09
== END | disposition home or self-care (01) ==
LOC: LAB 08:35
PROVIDERS: PCP Nurse Practitioner Family; Referring Provider Nurse Practitioner Family; Visit Provider Nurse Practitioner Family
DX: Z00.01 Encounter for general adult medical examination with abnormal findings (principal); E55.9 Vitamin D deficiency, unspecified
CPT/HCPCS: 36415; 80053; 80061; 82306; 85025

== ENCOUNTER → 2025-03-23 | Outpatient (CLI) | payer OTHER, SELFPAY ==
--- NOTE | 2025-03-23 15:17 | BI_ITS ---
EXAM: SCORN MAMM (CAD) Wo/AMRIK BILAT DATE: 03/23/2025 CLINICAL HISTORY: FA, Age 59 Y/o, SCREENING TECHNIQUE: Procedure Code: FORTINO Modality: MG Procedure: SCORN MAMM (CAD) Wo/AMRIK BILAT COMPARISON: Prior exam(s) dated 03/10/2024 and 03/07/2023. FINDINGS: TISSUE DENSITY: The breasts are heterogeneously dense, which may obscure small masses. Bilateral Breast Mammographic Findings: Benign-appearing round calcifications are seen in both breasts. Stable nodular masslike densities are seen in both breasts. There are no suspicious masses, suspicious clustered microcalcifications, architectural distortion or secondary signs of malignancy identified in either breast. A benign-appearing macrocalcification is seen in the right breast. BI/SCRN MAMM (CAD)W/AMRIK BILAT IMPRESSION: Benign screening mammogram OVERALL FINAL ASSESSMENT BI-RADS 2: BENIGN RECOMMENDATION: Routine annual follow-up in 1 Year Additional Recommendation none A letter with findings and recommendations will be mailed to the patient. Reading Location: [id number]
== END | disposition home or self-care (01) ==
PROVIDERS: PCP Nurse Practitioner Family; Referring Provider Obstetrics & Gynecology; Visit Provider Obstetrics & Gynecology
DX: Z12.31 Encounter for screening mammogram for malignant neoplasm of breast (principal); Z01.419 Encounter for gynecological examination (general) (routine) without abnormal findings
CPT/HCPCS: 77063; 77067